=== PATIENT | male | born 1970 | race Caucasian/White ===

== ENCOUNTER 2018-07-23 12:25 | Inpatient (IN) ==
[2018-07-23] MEDS ORDERED: HEPARIN DRIP 25,000 UNITS/500 ML PREMIX IV SCH (13:00)
[2018-07-23] MEDS ORDERED: CHLORHEXIDINE 4% SOLN 118 ML BOTTLE TOP SCH (15:00)
[2018-07-23 15:18] LABS: Basophils % 0.2 % (0.0-0.8); Hematocrit 42.9 VOL% (42.0-52.0); Hemoglobin 14.2 GM/DL (14.0-18.0); Immature Granulocytes % 0.9 %; Immature Granulocytes Absolute 0.16 #; Lymphocytes # 1.3 10*3/uL (1.4-4.0); Lymphocytes % 6.8 % (21.2-54.2); Mean Corpuscular HGB Conc 33.1 GM/DL (32-36); Mean Corpuscular Volume 97.5 FL (87-102); Mean Platelet Volume 9.3 FL (9.6-12.0); Monocytes % 10.1 % (1.7-12.7); Platelet Count 227 T/CUMM (130-400); Red Cell Distribution Width 16.1 % (9.3-17.3); White Blood Count 18.7 T/CUMM (4-12)
[2018-07-23] MEDS ORDERED: DEXTROSE 50% 25 GM/50 ML VIAL IV PRN (15:33)
[2018-07-23] MEDS ORDERED: GLUCAGON 1 MG VIAL IM PRN (15:33)
[2018-07-23 15:44] LABS: Bilirubin,Total 0.9 MG/DL (0.2-1.0); Calcium 9.2 MG/DL (8.5-10.1); Osmolality,Calculated 270.2 MOS/KG (273-304); Total Protein 7.6 G/DL (6.4-8.3)
[2018-07-23] MEDS: HEPARIN DRIP 25,000 UNITS/500 ML PREMIX IV SCH (16:45)
[2018-07-23] MEDS: INSULIN REGULAR 100 UNIT/ML SUBCUT SCH ×2 (16:56→21:15)
[2018-07-23 17:58] LABS: Apearance,Urine CLEAR (Clear); Bilirubin,Urine Negative (Negative); Blood, Urine Moderate mg/dL (Negative); Glucose,Urine (UA) Negative (Negative); Ketones,Urine Negative (Negative); Nitrite,Urine Negative (Negative); Protein,Urine Negative; RBC,Urine 35 /HPF (0-4); Squamous Epithelial Cell,Urine Occasional /HPF (0-10); Urine Color Yellow (Yellow); Urine Specific Gravity 1.017 (1.001-1.035); Urine Urobilinogen < 2.0 EU/DL (0.2-1.0); WBC,Urine 7 /HPF (0-6)
[2018-07-23] MEDS ORDERED: NICOTINE 14 MG/24 HR PATCH TRANSDERM PRN (18:30)
[2018-07-23] MEDS: SODIUM CHLORIDE 0.9% 1,000 ML IV SCH (18:34)
[2018-07-23] MEDS: methylPREDNISolone SOD SUC 40 MG/1 ML VIAL IV SCH (18:53)
[2018-07-23] MEDS: METOPROLOL TARTRATE 25 MG TABLET PO SCH (21:14)
[2018-07-23] MEDS: CHLORHEXIDINE 0.12% ORAL RINSE 60 ML BOTTLE SWISH/SPIT SCH (21:15)
[2018-07-23] MEDS ORDERED: HEPARIN 5,000 UNIT/1 ML VIAL IV ONE (23:21)
[2018-07-24] MEDS: methylPREDNISolone SOD SUC 40 MG/1 ML VIAL IV SCH ×3 (02:35→18:14)
[2018-07-24 05:58] LABS: Basophils % 0.2 % (0.0-0.8); Hematocrit 41.3 VOL% (42.0-52.0); Hemoglobin 13.5 GM/DL (14.0-18.0); Immature Granulocytes % 0.7 %; Immature Granulocytes Absolute 0.09 #; Lymphocytes # 0.8 10*3/uL (1.4-4.0); Lymphocytes % 6.4 % (21.2-54.2); Mean Corpuscular HGB Conc 32.7 GM/DL (32-36); Mean Corpuscular Volume 97.6 FL (87-102); Mean Platelet Volume 9.7 FL (9.6-12.0); Monocytes % 5.4 % (1.7-12.7); Neutrophils % 87.3 % (38.7-73.9); Platelet Count 197 T/CUMM (130-400); Red Blood Count 4.23 MC/CUMM (3.8-5.5); Red Cell Distribution Width 16.3 % (9.3-17.3); White Blood Count 12.5 T/CUMM (4-12)
[2018-07-24 06:29] LABS: Albumin 2.9 G/DL (3.4-5.0); Bilirubin,Total 1.2 MG/DL (0.2-1.0); Calcium 8.9 MG/DL (8.5-10.1); Osmolality,Calculated 271.4 MOS/KG (273-304); Total Protein 7.3 G/DL (6.4-8.3)
[2018-07-24] MEDS ORDERED: HEPARIN 5,000 UNIT/1 ML VIAL IV ONE ×3 (06:35→17:23)
[2018-07-24] MEDS: METOPROLOL TARTRATE 25 MG TABLET PO SCH ×2 (08:12→20:10)
[2018-07-24] MEDS: LEVOFLOXACIN 750 MG TABLET PO SCH (08:12)
[2018-07-24] MEDS: ASPIRIN CHEW 81 MG TABLET PO SCH (08:12)
[2018-07-24] MEDS: FUROSEMIDE 40 MG/4 ML VIAL IV SCH (08:17)
[2018-07-24] MEDS: CHLORHEXIDINE 0.12% ORAL RINSE 60 ML BOTTLE SWISH/SPIT SCH ×2 (08:17→20:12)
[2018-07-24] MEDS: INSULIN REGULAR 100 UNIT/ML SUBCUT SCH ×4 (08:21→20:13)
[2018-07-24] MEDS: HEPARIN DRIP 25,000 UNITS/500 ML PREMIX IV SCH ×2 (08:54→18:22)
[2018-07-24] MEDS: chlordiazePOXIDE 10 MG CAPSULE PO SCH ×2 (11:51→20:10)
[2018-07-24] MEDS: SODIUM CHLORIDE 0.9% 1,000 ML IV SCH (13:35)
[2018-07-24] MEDS: CHLORHEXIDINE 4% SOLN 118 ML BOTTLE TOP SCH ×2 (15:52→22:45)
[2018-07-25] MEDS: methylPREDNISolone SOD SUC 40 MG/1 ML VIAL IV SCH ×2 (03:22→11:23)
[2018-07-25] MEDS: chlordiazePOXIDE 10 MG CAPSULE PO SCH ×2 (03:28→15:34)
[2018-07-25] MEDS ORDERED: PAPAVERINE 60 MG/2 ML VIAL ONE (04:57)
[2018-07-25] MEDS ORDERED: VANCOMYCIN 1,000 MG VIAL ONE (04:57)
[2018-07-25] MEDS: CHLORHEXIDINE 4% SOLN 118 ML BOTTLE TOP SCH (05:00)
[2018-07-25] MEDS ORDERED: HEPARIN/NACL 0.9% 2 UNITS/ML 500 ML IV ONE (05:36)
[2018-07-25] MEDS ORDERED: CALCIUM CHLORIDE 1,000 MG/10 ML VIAL IV ONE (05:36)
[2018-07-25] MEDS ORDERED: EPINEPHrine 1 MG/ML VIAL ONE (05:36)
[2018-07-25] MEDS ORDERED: PHENYLEPHRINE DRIP 20 MG/250 ML PREMIX IV ONE (05:36)
[2018-07-25] MEDS ORDERED: MIDAZOLAM 10 MG/2 ML VIAL ONE ×2 (05:36→12:32)
[2018-07-25] MEDS ORDERED: SUFentanil 250 MCG/5 ML AMP ONE (05:36)
[2018-07-25] MEDS ORDERED: ETOMIDATE 40 MG/20 ML VIAL IV ONE (05:37)
[2018-07-25] MEDS ORDERED: SODIUM CHLORIDE 0.9% 250 ML IV ONE (05:37)
[2018-07-25] MEDS ORDERED: NITROGLYCERIN DRIP 50 MG/250 ML BOTTLE IV ONE ×2 (05:37→12:22)
[2018-07-25] MEDS ORDERED: VECURONIUM 10 MG VIAL IV ONE (05:37)
[2018-07-25] MEDS ORDERED: SODIUM CHLORIDE 0.9% 1,000 ML IV ONE (05:37)
[2018-07-25] MEDS ORDERED: AMINOCAPROIC ACID 5,000 MG/20 ML VIAL ONE (05:37)
[2018-07-25] MEDS ORDERED: ePHEDrine 50 MG/ML AMP ONE (05:37)
[2018-07-25] MEDS ORDERED: LACTATED RINGERS 1,000 ML IV ONE (05:37)
[2018-07-25] MEDS ORDERED: CEFUROXIME INJ 1,500 MG in SYRINGE 1 EACH IV ONE (06:00)
[2018-07-25] MEDS ORDERED: DIAZEPAM 5 MG TABLET PO ONE (06:00)
[2018-07-25] MEDS ORDERED: PHENYLEPHRINE DRIP 40 MG/250 ML PREMIX IV ONE (07:01)
[2018-07-25] MEDS ORDERED: CALCIUM CHLORIDE 1,000 MG/10 ML SYRINGE IV ONE (07:11)
[2018-07-25] MEDS ORDERED: SODIUM BICARBONATE 50 MEQ/50 ML VIAL IV ONE ×2 (07:12→11:59)
[2018-07-25 08:05] LABS: ABG Base Excess 0.4 MMOL/L (-2.5-2.5); ABG HCO3 24.5 MMOL/L (20-26); ABG Oxygen Saturation 99.3 % (95-100); ABG PCO2 37.8 MM HG (35-48); ABG PH 7.429 (7.35-7.45); ABG PO2 267.9 MM HG (80-95); ABG TCO2 25.6 MMOL/L (23-27); Glucose Heart Surgery 185 MG/DL (74-106); Ionized Calcium Arterial 1.11 MMOL/L (1.21-1.46); PCO2 Patient Temp Arterial 37.8 MMHG; PH Patient Temp Arterial 7.429; PO2 Patient Temp Arterial 267.9 MM HG; Patient Temperature 37 CELCIUS; Potassium Heart/CVR 3.7 MMOL/L (3.5-5.1); Sodium Heart/CVR 133 MMOL/L (135-145)
[2018-07-25] MEDS ORDERED: ALBUMIN 5% 12.5 GM/250 ML VIAL IV ONE (08:39)
[2018-07-25] MEDS ORDERED: CHLORHEXIDINE 4% SOLN 118 ML BOTTLE TOP SCH (09:00)
[2018-07-25 09:58] LABS: Hematocrit Heart Surgery 29.7 PERCENT (42-52); Hemoglobin Heart Surgery 9.6 G/DL (14.0-18.0); PCO2 Patient Temp Venous 36.6 MM HG; PH Patient Temp Venous 7.458; Potassium Heart/CVR 4.5 MMOL/L (3.5-5.1); VBG Base Excess 2.2 MEQ/L (0-4); VBG HCO3 26.1 MEQ/L (24-28); VBG Oxygen Saturation 81.5 %; VBG PCO2 40.3 MMHG (41-51); VBG PH 7.429; VBG PO2 48.2 MMHG (17-40)
[2018-07-25 10:26] LABS: Hematocrit Heart Surgery 29.1 PERCENT (42-52); Hemoglobin Heart Surgery 9.4 G/DL (14.0-18.0); PCO2 Patient Temp Venous 39.6 MM HG; PH Patient Temp Venous 7.421; PO2 Patient Temp Venous 36.6 MM HG; Potassium Heart/CVR 4.4 MMOL/L (3.5-5.1); VBG Base Excess 1.3 MEQ/L (0-4); VBG HCO3 25.1 MEQ/L (24-28); VBG PCO2 39.6 MMHG (41-51); VBG PH 7.421; VBG PO2 36.6 MMHG (17-40)
[2018-07-25] MEDS ORDERED: POTASSIUM CHLORIDE RIDER 100 ML IV ONE (10:43)
[2018-07-25 11:05] LABS: ABG Base Excess -1.8 MMOL/L (-2.5-2.5); ABG HCO3 23.9 MMOL/L (20-26); ABG Oxygen Saturation 97.4 % (95-100); ABG PCO2 44.5 MM HG (35-48); ABG PH 7.348 (7.35-7.45); ABG PO2 113.6 MM HG (80-95); ABG TCO2 25.3 MMOL/L (23-27); Glucose Heart Surgery 327 MG/DL (74-106); Hemoglobin Heart Surgery 11.6 G/DL (14.0-18.0); PCO2 Patient Temp Arterial 44.5 MMHG; PH Patient Temp Arterial 7.348; PO2 Patient Temp Arterial 113.6 MM HG; Patient Temperature 37 CELCIUS; Potassium Heart/CVR 3.1 MMOL/L (3.5-5.1); Sodium Heart/CVR 130 MMOL/L (135-145)
[2018-07-25] MEDS: INSULIN REGULAR 100 UNIT/ML SUBCUT SCH ×2 (11:22→15:34)
[2018-07-25] MEDS: ASPIRIN CHEW 81 MG TABLET PO SCH (11:23)
[2018-07-25] MEDS: METOPROLOL TARTRATE 25 MG TABLET PO SCH (11:23)
[2018-07-25] MEDS: LEVOFLOXACIN 750 MG TABLET PO SCH (11:23)
[2018-07-25] MEDS: CHLORHEXIDINE 0.12% ORAL RINSE 60 ML BOTTLE SWISH/SPIT SCH ×2 (11:23→21:03)
[2018-07-25] MEDS: FUROSEMIDE 40 MG/4 ML VIAL IV SCH (11:23)
[2018-07-25] MEDS ORDERED: AMIODARONE 450 MG/9 ML VIAL IV ONE (11:26)
[2018-07-25] MEDS ORDERED: DEXTROSE 50% 25 GM/50 ML VIAL IV PRN ×2 (11:53)
[2018-07-25] MEDS ORDERED: ALBUMIN 5% 12.5 GM in PREMIX 1 EACH IV PRN (11:53)
[2018-07-25] MEDS ORDERED: INSULIN REGULAR 100 UNIT/ML IV PRN (11:53)
[2018-07-25] MEDS ORDERED: SODIUM CHLORIDE 0.9% 250 ML IV PRN (11:53)
[2018-07-25] MEDS ORDERED: CALCIUM CHLORIDE 1,000 MG/10 ML SYRINGE IV PRN (11:53)
[2018-07-25] MEDS ORDERED: MAGNESIUM SULF RIDER 4 GM in PREMIX 1 EACH IV PRN (11:53)
[2018-07-25] MEDS ORDERED: ACETAMINOPHEN 650 MG SUPP RECTAL PRN (11:53)
[2018-07-25] MEDS ORDERED: ONDANSETRON 4 MG/2 ML VIAL IV PRN (11:53)
[2018-07-25] MEDS ORDERED: CHLORHEXIDINE 4% SOLN 118 ML BOTTLE TOP PRN (11:53)
[2018-07-25] MEDS ORDERED: MAGNESIUM SULF RIDER 2 GM in PREMIX 1 EACH IV PRN (11:53)
[2018-07-25] MEDS ORDERED: POTASSIUM CHLORIDE RIDER 10 MEQ in PREMIX 1 EACH IV PRN (11:53)
[2018-07-25] MEDS ORDERED: MAGNESIUM SULFATE 5 GM/10 ML VIAL IV ONE (11:59)
[2018-07-25] MEDS ORDERED: PROTAMINE SULFATE 250 MG/25 ML VIAL IV ONE (11:59)
[2018-07-25] MEDS ORDERED: HEPARIN 10,000 UNIT/10 ML VIAL ONE (11:59)
[2018-07-25] MEDS ORDERED: MANNITOL 100 GM/500 ML BAG IV ONE (11:59)
[2018-07-25] MEDS ORDERED: ALBUMIN 25% 25 GM/100 ML VIAL IV ONE (11:59)
[2018-07-25] MEDS ORDERED: DEXTROSE 5% KCL 20 MEQ 20 MEQ/1,000 ML BAG IV ONE (11:59)
[2018-07-25] MEDS: SODIUM CHLORIDE 0.45% 1,000 ML IV SCH ×2 (12:00)
[2018-07-25] MEDS ORDERED: methylPREDNISolone SOD SUC 1,000 MG/8 ML VIAL ONE (12:00)
[2018-07-25] MEDS ORDERED: PROTAMINE SULFATE 50 MG/5 ML VIAL IV ONE (12:00)
[2018-07-25] MEDS ORDERED: FUROSEMIDE 20 MG/2 ML VIAL ONE (12:00)
[2018-07-25] MEDS ORDERED: SEVOFLURANE 1 UNIT/15 MINUTE INH ONE (12:04)
[2018-07-25] MEDS ORDERED: AMIODARONE 150 MG/3 ML VIAL ONE (12:04)
[2018-07-25] MEDS ORDERED: hydrALAZINE 20 MG/1 ML VIAL ONE (12:24)
[2018-07-25] MEDS ORDERED: NITROPRUSSIDE 50 MG/2 ML VIAL ONE (12:31)
[2018-07-25] MEDS: MIDAZOLAM 2 MG/2 ML VIAL IV PRN ×5 (12:45→20:13)
[2018-07-25] MEDS: POTASSIUM CHLORIDE RIDER 20 MEQ in PREMIX 1 EACH IV PRN ×4 (13:00→17:35)
[2018-07-25 13:06] LABS: ABG Base Excess -2.5 MMOL/L (-2.5-2.5); ABG HCO3 22.3 MMOL/L (20-26); ABG Oxygen Saturation 97.9 % (95-100); ABG PH 7.294 (7.35-7.45); Glucose Heart Surgery 308 MG/DL (74-106); Hematocrit Heart Surgery 39.7 PERCENT (42-52); Hemoglobin Heart Surgery 12.9 G/DL (14.0-18.0); Potassium Heart/CVR 3.2 MMOL/L (3.5-5.1)
[2018-07-25 13:11] LABS: Basophils % 0.2 % (0.0-0.8); Eosinophils % 0.1 % (0.00-10.9); Hematocrit 38.5 VOL% (42.0-52.0); Hemoglobin 12.3 GM/DL (14.0-18.0); Immature Granulocytes Absolute 0.19 #; Lymphocytes # 0.8 10*3/uL (1.4-4.0); Lymphocytes % 4.3 % (21.2-54.2); Mean Corpuscular HGB Conc 31.9 GM/DL (32-36); Mean Corpuscular Volume 100.5 FL (87-102); Mean Platelet Volume 9.8 FL (9.6-12.0); Monocytes % 10.3 % (1.7-12.7); Neutrophils % 84.1 % (38.7-73.9); Platelet Count 200 T/CUMM (130-400); Red Blood Count 3.83 MC/CUMM (3.8-5.5); White Blood Count 18.9 T/CUMM (4-12)
[2018-07-25 13:19] LABS: PT Patient Result 11.3 SECS; Partial Thromboplastin Time 23.5 SECS (0-40)
[2018-07-25 13:25] LABS: Blood Urea Nitrogen 18 MG/DL (7-18); Calcium 8.1 MG/DL (8.5-10.1); Glucose 280 MG/DL (74-106); Osmolality,Calculated 284.8 MOS/KG (273-304)
[2018-07-25] MEDS ORDERED: NITROGLYCERIN DRIP 50 MG/250 ML BOTTLE IV PRN (13:34)
[2018-07-25] MEDS ORDERED: NITROPRUSSIDE 100 MG in DEXTROSE 5% 246 ML IV PRN (13:34)
[2018-07-25 13:50] LABS: Band Neutrophils 2 % (0-10); Segmented Neutrophils 86 % (50-85); Total Cells Counted 100
[2018-07-25 13:51] LABS: Lymphocytes 5 % (20-55)
[2018-07-25] MEDS: INSULIN REGULAR DRIP 100 ML IV SCH (14:00)
[2018-07-25] MEDS ORDERED: AMIODARONE INJ 450 MG in DEXTROSE 5% 241 ML IV SCH (14:00)
[2018-07-25] MEDS ORDERED: ASPIRIN 325 MG TABLET PO ONE (14:38)
[2018-07-25] MEDS: DEXMEDETOMIDINE 200 MCG in SODIUM CHLORIDE 0.9% 48 ML IV PRN ×4 (14:56→21:59)
[2018-07-25] MEDS: SODIUM CHLORIDE 0.9% 1,000 ML IV SCH (15:35)
[2018-07-25] MEDS: LEVALBUTEROL 1.25 MG/3 ML NEB RESP TX SCH ×2 (15:47→19:07)
[2018-07-25 16:30] LABS: ABG Base Excess -1.7 MMOL/L (-2.5-2.5); ABG PCO2 44.3 MM HG (35-48); ABG PH 7.345 (7.35-7.45); ABG TCO2 21.7 MMOL/L (23-27); Glucose Heart Surgery 269 MG/DL (74-106); Hematocrit Heart Surgery 35.6 PERCENT (42-52); Hemoglobin Heart Surgery 11.5 G/DL (14.0-18.0); Potassium Heart/CVR 3.4 MMOL/L (3.5-5.1)
[2018-07-25] MEDS: PROPOFOL 1,000 MG/100 ML BOTTLE IV SCH ×2 (17:30→21:58)
[2018-07-25] MEDS ORDERED: PROPOFOL 1,000 MG/100 ML BOTTLE IV ONE (17:37)
[2018-07-25] MEDS: AMIODARONE INJ 450 MG in DEXTROSE 5% 241 ML IV SCH ×2 (18:58→19:33)
[2018-07-25] MEDS: MORPHINE 10 MG/1 ML VIAL IV PRN (20:00)
[2018-07-25] MEDS: CEFUROXIME INJ 1,500 MG in SYRINGE 1 EACH IV SCH (21:16)
[2018-07-25] MEDS ORDERED: PHENYLEPHRINE DRIP 40 MG/250 ML PREMIX IV PRN (21:29)
[2018-07-25 21:41] LABS: ABG Base Excess 1.8 MMOL/L (-2.5-2.5); ABG Oxygen Saturation 98.5 % (95-100); ABG PCO2 42.7 MM HG (35-48); ABG PH 7.404 (7.35-7.45); ABG TCO2 24.1 MMOL/L (23-27); Glucose Heart Surgery 133 MG/DL (74-106); Hematocrit Heart Surgery 32.8 PERCENT (42-52); Hemoglobin Heart Surgery 10.6 G/DL (14.0-18.0); Potassium Heart/CVR 4.4 MMOL/L (3.5-5.1)
[2018-07-26] MEDS: LEVALBUTEROL 1.25 MG/3 ML NEB RESP TX SCH ×4 (00:39→18:35)
[2018-07-26] MEDS: DEXMEDETOMIDINE 200 MCG in SODIUM CHLORIDE 0.9% 48 ML IV PRN ×5 (00:48→11:04)
[2018-07-26] MEDS: PROPOFOL 1,000 MG/100 ML BOTTLE IV SCH ×6 (01:18→19:19)
[2018-07-26] MEDS: SODIUM CHLORIDE 0.45% 1,000 ML IV SCH ×3 (02:36→15:52)
[2018-07-26] MEDS: INSULIN REGULAR DRIP 100 ML IV SCH ×2 (03:48→18:10)
[2018-07-26 04:16] LABS: Basophils % 0.2 % (0.0-0.8); Hematocrit 32.6 VOL% (42.0-52.0); Hemoglobin 10.2 GM/DL (14.0-18.0); Immature Granulocytes % 0.5 %; Immature Granulocytes Absolute 0.06 #; Lymphocytes % 8.3 % (21.2-54.2); Mean Corpuscular HGB Conc 31.3 GM/DL (32-36); Mean Corpuscular Volume 101.6 FL (87-102); Mean Platelet Volume 10.1 FL (9.6-12.0); Monocytes % 10.5 % (1.7-12.7); Neutrophils % 80.5 % (38.7-73.9); Platelet Count 135 T/CUMM (130-400); Red Blood Count 3.21 MC/CUMM (3.8-5.5); Red Cell Distribution Width 16.3 % (9.3-17.3)
[2018-07-26 04:38] LABS: Calcium 7.9 MG/DL (8.5-10.1); Osmolality,Calculated 279.4 MOS/KG (273-304)
[2018-07-26] MEDS ORDERED: DOBUTamine 500 MG/250 ML PREMIX IV PRN (04:58)
[2018-07-26] MEDS ORDERED: CEFUROXIME INJ 1,500 MG in SYRINGE 1 EACH IV ONE (06:00)
[2018-07-26] MEDS: MORPHINE 10 MG/1 ML VIAL IV PRN ×4 (06:31→15:26)
[2018-07-26] MEDS: MIDAZOLAM 2 MG/2 ML VIAL IV PRN (06:34)
[2018-07-26 08:05] LABS: ABG Base Excess -0.2 MMOL/L (-2.5-2.5); ABG PCO2 32.9 MM HG (35-48); ABG PH 7.462 (7.35-7.45); ABG PO2 113.2 MM HG (80-95); Glucose Heart Surgery 135 MG/DL (74-106); Hemoglobin Heart Surgery 12.2 G/DL (14.0-18.0); Potassium Heart/CVR 4.1 MMOL/L (3.5-5.1)
[2018-07-26] MEDS ORDERED: DIAZEPAM 5 MG TABLET PO ONE (09:00)
[2018-07-26] MEDS: FAMOTIDINE 20 MG/2 ML VIAL IV SCH ×2 (09:19→20:13)
[2018-07-26] MEDS: CEFUROXIME INJ 1,500 MG in SYRINGE 1 EACH IV SCH ×2 (09:19→21:12)
[2018-07-26] MEDS ORDERED: AMIODARONE 450 MG/9 ML VIAL IV ONE (10:16)
[2018-07-26] MEDS ORDERED: FUROSEMIDE 40 MG/4 ML VIAL ONE (10:16)
[2018-07-26] MEDS: ASPIRIN 325 MG TABLET PO SCH (11:02)
[2018-07-26] MEDS: FUROSEMIDE 40 MG TABLET PO SCH (11:02)
[2018-07-26] MEDS: ATORVASTATIN 40 MG TABLET PO SCH ×2 (11:02→20:14)
[2018-07-26] MEDS ORDERED: FUROSEMIDE 40 MG/4 ML VIAL IV ONE (11:18)
[2018-07-26] MEDS: CHLORHEXIDINE 0.12% ORAL RINSE 60 ML BOTTLE SWISH/SPIT SCH ×2 (11:28→20:43)
[2018-07-26] MEDS ORDERED: ASPIRIN EC 325 MG TABLET PO SCH (11:53)
[2018-07-26] MEDS: AMIODARONE INJ 450 MG in DEXTROSE 5% 241 ML IV SCH (12:10)
[2018-07-26] MEDS: DEXMEDETOMIDINE 400 MCG in SODIUM CHLORIDE 0.9% 96 ML IV PRN ×2 (13:27→18:51)
[2018-07-26] MEDS: PANTOPRAZOLE INJ 200 MG in SODIUM CHLORIDE 0.9% 250 ML IV SCH (14:17)
[2018-07-26] MEDS ORDERED: PANTOPRAZOLE 40 MG VIAL IV SCH ×2 (15:00)
[2018-07-26] MEDS: chlordiazePOXIDE 10 MG CAPSULE PO SCH (18:15)
[2018-07-26] MEDS: methylPREDNISolone SOD SUC 40 MG/1 ML VIAL IV SCH (18:49)
[2018-07-26 19:05] LABS: ABG Base Excess 0.6 MMOL/L (-2.5-2.5); ABG HCO3 24.2 MMOL/L (20-26); ABG Oxygen Saturation 87.7 % (95-100); ABG PCO2 35.5 MM HG (35-48); ABG PH 7.452 (7.35-7.45); ABG TCO2 25.3 MMOL/L (23-27); Glucose Heart Surgery 126 MG/DL (74-106); Hemoglobin Heart Surgery 11.9 G/DL (14.0-18.0)
[2018-07-26 20:06] LABS: ABG Base Excess 0.1 MMOL/L (-2.5-2.5); ABG HCO3 23.7 MMOL/L (20-26); ABG Oxygen Saturation 92.4 % (95-100); ABG PH 7.449 (7.35-7.45); ABG PO2 67.6 MM HG (80-95); ABG TCO2 24.8 MMOL/L (23-27); Glucose Heart Surgery 129 MG/DL (74-106); Hemoglobin Heart Surgery 11.8 G/DL (14.0-18.0); Potassium Heart/CVR 4.5 MMOL/L (3.5-5.1)
[2018-07-26] MEDS ORDERED: ALBUTEROL/IPRATROPIUM 3 ML NEB RESP TX ONE (20:39)
[2018-07-26] MEDS ORDERED: KETOROLAC 30 MG/1 ML VIAL IV ONE (20:51)
[2018-07-26 21:26] LABS: ABG Base Excess 0.3 MMOL/L (-2.5-2.5); ABG HCO3 24.7 MMOL/L (20-26); ABG Oxygen Saturation 97.7 % (95-100); ABG PCO2 37.4 MM HG (35-48); ABG PH 7.423 (7.35-7.45); ABG TCO2 21.8 MMOL/L (23-27); Glucose Heart Surgery 140 MG/DL (74-106); Hematocrit Heart Surgery 35.1 PERCENT (42-52); Hemoglobin Heart Surgery 11.4 G/DL (14.0-18.0)
[2018-07-27] MEDS: ALBUTEROL/IPRATROPIUM 3 ML NEB RESP TX SCH ×4 (00:15→20:23)
[2018-07-27] MEDS: LEVALBUTEROL 1.25 MG/3 ML NEB RESP TX SCH ×6 (00:15→14:25)
[2018-07-27] MEDS: methylPREDNISolone SOD SUC 40 MG/1 ML VIAL IV SCH ×3 (03:37→17:10)
[2018-07-27] MEDS: chlordiazePOXIDE 10 MG CAPSULE PO SCH ×3 (03:37→17:10)
[2018-07-27 05:27] LABS: Basophils % 0.2 % (0.0-0.8); Hematocrit 34.7 VOL% (42.0-52.0); Hemoglobin 11.2 GM/DL (14.0-18.0); Immature Granulocytes % 0.9 %; Immature Granulocytes Absolute 0.16 #; Lymphocytes # 0.7 10*3/uL (1.4-4.0); Mean Corpuscular HGB Conc 32.3 GM/DL (32-36); Mean Corpuscular Volume 99.7 FL (87-102); Mean Platelet Volume 10.4 FL (9.6-12.0); Monocytes % 6.3 % (1.7-12.7); Neutrophils % 88.6 % (38.7-73.9); Platelet Count 197 T/CUMM (130-400); Red Blood Count 3.48 MC/CUMM (3.8-5.5); Red Cell Distribution Width 16.2 % (9.3-17.3); White Blood Count 17.2 T/CUMM (4-12)
[2018-07-27 05:41] LABS: Calcium 8.4 MG/DL (8.5-10.1); Osmolality,Calculated 281.8 MOS/KG (273-304)
[2018-07-27] MEDS: AMIODARONE INJ 450 MG in DEXTROSE 5% 241 ML IV SCH ×2 (05:45→19:31)
[2018-07-27 06:34] LABS: Band Neutrophils 1 % (0-10); Hypochromasia 1+; Lymphocytes 5 % (20-55); Platelet Estimate Adequate; Segmented Neutrophils 92 % (50-85); Total Cells Counted 100
[2018-07-27] MEDS ORDERED: METOPROLOL TARTRATE 5 MG/5 ML VIAL IV ONE ×2 (10:53→22:53)
[2018-07-27] MEDS ORDERED: FUROSEMIDE 40 MG/4 ML VIAL IV ONE (10:53)
[2018-07-27] MEDS: CARVEDILOL 3.125 MG TABLET PO SCH ×2 (11:48→17:10)
[2018-07-27] MEDS: AMIODARONE 200 MG TABLET PO SCH ×2 (11:48→22:03)
[2018-07-27] MEDS: ASPIRIN 325 MG TABLET PO SCH (11:48)
[2018-07-27] MEDS: INSULIN REGULAR 100 UNIT/ML SUBCUT SCH ×4 (11:50→22:03)
[2018-07-27] MEDS: FUROSEMIDE 40 MG TABLET PO SCH (11:51)
[2018-07-27] MEDS: FAMOTIDINE 20 MG/2 ML VIAL IV SCH (11:52)
[2018-07-27] MEDS: CHLORHEXIDINE 0.12% ORAL RINSE 60 ML BOTTLE SWISH/SPIT SCH ×2 (11:56→22:04)
[2018-07-27] MEDS: MORPHINE 10 MG/1 ML VIAL IV PRN ×2 (12:02→22:02)
[2018-07-27] MEDS: PANTOPRAZOLE INJ 200 MG in SODIUM CHLORIDE 0.9% 250 ML IV SCH (15:50)
[2018-07-27] MEDS: NICOTINE 21 MG/24 HR PATCH TRANSDERM SCH (17:00)
[2018-07-27] MEDS: PROPOFOL 1,000 MG/100 ML BOTTLE IV SCH (19:32)
[2018-07-27] MEDS: ATORVASTATIN 40 MG TABLET PO SCH (22:03)
[2018-07-28] MEDS: ALBUTEROL/IPRATROPIUM 3 ML NEB RESP TX SCH ×4 (00:31→19:40)
[2018-07-28] MEDS: chlordiazePOXIDE 10 MG CAPSULE PO SCH ×3 (01:26→17:34)
[2018-07-28] MEDS: methylPREDNISolone SOD SUC 40 MG/1 ML VIAL IV SCH ×3 (01:33→17:34)
[2018-07-28 05:23] LABS: Basophils % 0.2 % (0.0-0.8); Hematocrit 33.6 VOL% (42.0-52.0); Hemoglobin 10.8 GM/DL (14.0-18.0); Immature Granulocytes % 1.3 %; Immature Granulocytes Absolute 0.16 #; Lymphocytes # 0.9 10*3/uL (1.4-4.0); Lymphocytes % 6.8 % (21.2-54.2); Mean Corpuscular HGB Conc 32.1 GM/DL (32-36); Mean Corpuscular Volume 101.2 FL (87-102); Mean Platelet Volume 10.7 FL (9.6-12.0); Monocytes % 7.5 % (1.7-12.7); Neutrophils % 84.2 % (38.7-73.9); Platelet Count 162 T/CUMM (130-400); Red Blood Count 3.32 MC/CUMM (3.8-5.5); Red Cell Distribution Width 16.1 % (9.3-17.3); White Blood Count 12.5 T/CUMM (4-12)
[2018-07-28 05:52] LABS: Calcium 8.9 MG/DL (8.5-10.1); Osmolality,Calculated 290.4 MOS/KG (273-304)
[2018-07-28] MEDS: POTASSIUM CHLORIDE RIDER 20 MEQ in PREMIX 1 EACH IV PRN (06:52)
[2018-07-28] MEDS ORDERED: FUROSEMIDE 40 MG/4 ML VIAL IV ONE (08:13)
[2018-07-28] MEDS: CHLORHEXIDINE 0.12% ORAL RINSE 60 ML BOTTLE SWISH/SPIT SCH ×2 (09:12→21:25)
[2018-07-28] MEDS: INSULIN REGULAR 100 UNIT/ML SUBCUT SCH ×4 (09:24→21:23)
[2018-07-28] MEDS: FUROSEMIDE 40 MG TABLET PO SCH (09:25)
[2018-07-28] MEDS: AMIODARONE 200 MG TABLET PO SCH ×2 (09:25→21:23)
[2018-07-28] MEDS: NICOTINE 21 MG/24 HR PATCH TRANSDERM SCH (09:25)
[2018-07-28] MEDS: ASPIRIN 325 MG TABLET PO SCH (09:25)
[2018-07-28] MEDS: CARVEDILOL 3.125 MG TABLET PO SCH (09:25)
[2018-07-28] MEDS ORDERED: CARVEDILOL 3.125 MG TABLET PO ONE (10:19)
[2018-07-28] MEDS: MORPHINE 10 MG/1 ML VIAL IV PRN (16:24)
[2018-07-28] MEDS: ATORVASTATIN 40 MG TABLET PO SCH (21:23)
[2018-07-28] MEDS: CARVEDILOL 6.25 MG TABLET PO SCH (21:23)
[2018-07-29] MEDS: ALBUTEROL/IPRATROPIUM 3 ML NEB RESP TX SCH ×4 (01:35→19:07)
[2018-07-29] MEDS: methylPREDNISolone SOD SUC 40 MG/1 ML VIAL IV SCH ×3 (02:39→17:41)
[2018-07-29] MEDS: chlordiazePOXIDE 10 MG CAPSULE PO SCH ×3 (02:39→17:41)
[2018-07-29] MEDS: MORPHINE 10 MG/1 ML VIAL IV PRN ×2 (04:08→15:14)
[2018-07-29] MEDS: ASPIRIN 325 MG TABLET PO SCH (09:44)
[2018-07-29] MEDS: AMIODARONE 200 MG TABLET PO SCH ×2 (09:44→20:43)
[2018-07-29] MEDS: INSULIN REGULAR 100 UNIT/ML SUBCUT SCH ×4 (09:44→20:42)
[2018-07-29] MEDS: CARVEDILOL 6.25 MG TABLET PO SCH ×2 (09:45→20:43)
[2018-07-29] MEDS: NICOTINE 21 MG/24 HR PATCH TRANSDERM SCH (09:45)
[2018-07-29] MEDS: FUROSEMIDE 40 MG TABLET PO SCH (09:45)
[2018-07-29] MEDS: CHLORHEXIDINE 0.12% ORAL RINSE 60 ML BOTTLE SWISH/SPIT SCH ×2 (09:51→20:43)
[2018-07-29] MEDS: MORPHINE 4 MG/1 ML VIAL IV PRN (09:55)
[2018-07-29] MEDS ORDERED: FUROSEMIDE 40 MG/4 ML VIAL IV ONE (14:27)
[2018-07-29] MEDS: ATORVASTATIN 40 MG TABLET PO SCH (20:43)
[2018-07-30] MEDS: ALBUTEROL/IPRATROPIUM 3 ML NEB RESP TX SCH ×2 (00:44→07:23)
[2018-07-30] MEDS: MORPHINE 10 MG/1 ML VIAL IV PRN (01:37)
[2018-07-30] MEDS: chlordiazePOXIDE 10 MG CAPSULE PO SCH ×3 (01:37→17:07)
[2018-07-30] MEDS: methylPREDNISolone SOD SUC 40 MG/1 ML VIAL IV SCH ×3 (01:47→23:10)
[2018-07-30 06:24] LABS: Basophils % 0.2 % (0.0-0.8); Hematocrit 35.4 VOL% (42.0-52.0); Hemoglobin 11.8 GM/DL (14.0-18.0); Immature Granulocytes % 2.1 %; Immature Granulocytes Absolute 0.33 #; Lymphocytes # 1.2 10*3/uL (1.4-4.0); Lymphocytes % 7.7 % (21.2-54.2); Mean Corpuscular HGB Conc 33.3 GM/DL (32-36); Mean Corpuscular Volume 96.2 FL (87-102); Mean Platelet Volume 9.7 FL (9.6-12.0); Monocytes % 6.4 % (1.7-12.7); Neutrophils % 83.6 % (38.7-73.9); Platelet Count 301 T/CUMM (130-400); Red Blood Count 3.68 MC/CUMM (3.8-5.5); Red Cell Distribution Width 14.8 % (9.3-17.3); White Blood Count 15.9 T/CUMM (4-12)
[2018-07-30 06:44] LABS: Calcium 8.6 MG/DL (8.5-10.1); Osmolality,Calculated 286.1 MOS/KG (273-304)
[2018-07-30] MEDS ORDERED: METOPROLOL TARTRATE 5 MG/5 ML VIAL IV ONE ×3 (07:59→09:59)
[2018-07-30] MEDS: INSULIN REGULAR 100 UNIT/ML SUBCUT SCH ×4 (09:55→21:25)
[2018-07-30] MEDS: ASPIRIN 325 MG TABLET PO SCH (10:09)
[2018-07-30] MEDS: AMIODARONE 200 MG TABLET PO SCH (10:09)
[2018-07-30] MEDS: CHLORHEXIDINE 0.12% ORAL RINSE 60 ML BOTTLE SWISH/SPIT SCH ×2 (10:10→21:26)
[2018-07-30] MEDS: FUROSEMIDE 40 MG TABLET PO SCH (10:10)
[2018-07-30] MEDS: NICOTINE 21 MG/24 HR PATCH TRANSDERM SCH (10:10)
[2018-07-30] MEDS: CARVEDILOL 12.5 MG TABLET PO SCH ×2 (10:11→21:26)
[2018-07-30] MEDS: MORPHINE 4 MG/1 ML VIAL IV PRN ×3 (10:15→19:50)
[2018-07-30] MEDS: LEVALBUTEROL 1.25 MG/3 ML NEB RESP TX SCH ×2 (12:00→19:31)
[2018-07-30] MEDS ORDERED: AMIODARONE INJ 150 MG in DEXTROSE 5% 100 ML IV ONE (12:00)
[2018-07-30] MEDS ORDERED: dilTIAZem Drip 125 MG/125 ML PREMIX IV SCH (12:00)
[2018-07-30] MEDS ORDERED: AMIODARONE INJ 450 MG in DEXTROSE 5% 241 ML IV SCH ×2 (12:00→18:00)
[2018-07-30] MEDS: ASCORBIC ACID 500 MG TABLET PO SCH ×2 (12:31→21:26)
[2018-07-30] MEDS: dilTIAZem Drip 125 MG/125 ML PREMIX IV SCH (12:32)
[2018-07-30] MEDS ORDERED: ALBUTEROL 2.5 MG/3 ML NEB RESP TX SCH (13:00)
[2018-07-30] MEDS ORDERED: GLUCAGON 1 MG VIAL IM PRN (13:42)
[2018-07-30] MEDS ORDERED: DEXTROSE 50% 25 GM/50 ML VIAL IV PRN (13:42)
[2018-07-30] MEDS: CARVEDILOL 6.25 MG TABLET PO SCH (13:50)
[2018-07-30] MEDS: metFORMIN 500 MG TABLET PO SCH (16:48)
[2018-07-30] MEDS: INSULIN NPH 100 UNIT/ML SUBCUT SCH (16:48)
[2018-07-30] MEDS: ROSUVASTATIN 20 MG TABLET PO SCH (21:26)
[2018-07-31] MEDS: LEVALBUTEROL 1.25 MG/3 ML NEB RESP TX SCH ×4 (00:30→19:40)
[2018-07-31] MEDS: chlordiazePOXIDE 10 MG CAPSULE PO SCH ×3 (02:25→17:15)
[2018-07-31 05:15] LABS: Basophils % 0.2 % (0.0-0.8); Hematocrit 34.8 VOL% (42.0-52.0); Hemoglobin 11.8 GM/DL (14.0-18.0); Immature Granulocytes % 1.7 %; Immature Granulocytes Absolute 0.32 #; Lymphocytes # 1.4 10*3/uL (1.4-4.0); Lymphocytes % 7.3 % (21.2-54.2); Mean Corpuscular HGB Conc 33.9 GM/DL (32-36); Mean Corpuscular Volume 94.3 FL (87-102); Monocytes % 5.8 % (1.7-12.7); Platelet Count 309 T/CUMM (130-400); Red Blood Count 3.69 MC/CUMM (3.8-5.5); Red Cell Distribution Width 14.6 % (9.3-17.3); White Blood Count 19.4 T/CUMM (4-12)
[2018-07-31 05:47] LABS: Calcium 8.6 MG/DL (8.5-10.1); Osmolality,Calculated 283.4 MOS/KG (273-304)
[2018-07-31] MEDS: MORPHINE 4 MG/1 ML VIAL IV PRN ×2 (06:53→12:08)
[2018-07-31] MEDS: NICOTINE 21 MG/24 HR PATCH TRANSDERM SCH (09:13)
[2018-07-31] MEDS: INSULIN NPH 100 UNIT/ML SUBCUT SCH ×2 (09:13→16:46)
[2018-07-31] MEDS: INSULIN REGULAR 100 UNIT/ML SUBCUT SCH ×4 (09:13→20:37)
[2018-07-31] MEDS: ASPIRIN 325 MG TABLET PO SCH (09:14)
[2018-07-31] MEDS: CHLORHEXIDINE 0.12% ORAL RINSE 60 ML BOTTLE SWISH/SPIT SCH ×2 (09:14→20:45)
[2018-07-31] MEDS: CARVEDILOL 12.5 MG TABLET PO SCH ×2 (09:15→20:37)
[2018-07-31] MEDS: metFORMIN 500 MG TABLET PO SCH ×2 (09:15→16:47)
[2018-07-31] MEDS: ASCORBIC ACID 500 MG TABLET PO SCH ×2 (09:15→20:36)
[2018-07-31] MEDS: FUROSEMIDE 40 MG TABLET PO SCH (09:15)
[2018-07-31] MEDS: methylPREDNISolone SOD SUC 40 MG/1 ML VIAL IV SCH ×2 (10:12→22:50)
[2018-07-31] MEDS: dilTIAZem Drip 125 MG/125 ML PREMIX IV SCH (13:51)
[2018-07-31] MEDS ORDERED: FUROSEMIDE 40 MG/4 ML VIAL IV ONE (14:16)
[2018-07-31] MEDS: ROSUVASTATIN 20 MG TABLET PO SCH (20:36)
[2018-08-01] MEDS: LEVALBUTEROL 1.25 MG/3 ML NEB RESP TX SCH ×4 (00:22→19:23)
[2018-08-01] MEDS: chlordiazePOXIDE 10 MG CAPSULE PO SCH ×3 (01:52→17:09)
[2018-08-01 05:07] LABS: Basophils # 0.1 10*3/uL (0.0-0.2); Basophils % 0.2 % (0.0-0.8); Hematocrit 36.1 VOL% (42.0-52.0); Hemoglobin 11.9 GM/DL (14.0-18.0); Immature Granulocytes % 2.5 %; Immature Granulocytes Absolute 0.53 #; Lymphocytes # 1.5 10*3/uL (1.4-4.0); Lymphocytes % 7.3 % (21.2-54.2); Mean Corpuscular Volume 95.8 FL (87-102); Mean Platelet Volume 10.3 FL (9.6-12.0); Monocytes % 6.5 % (1.7-12.7); Neutrophils % 83.5 % (38.7-73.9); Platelet Count 267 T/CUMM (130-400); Red Blood Count 3.77 MC/CUMM (3.8-5.5); Red Cell Distribution Width 14.5 % (9.3-17.3); White Blood Count 20.9 T/CUMM (4-12)
[2018-08-01 05:15] LABS: Calcium 8.7 MG/DL (8.5-10.1); Osmolality,Calculated 278.1 MOS/KG (273-304)
[2018-08-01 05:48] LABS: Band Neutrophils 10 % (0-10); Eosinophils 2 % (0-10); Lymphocytes 10 % (20-55); Platelet Estimate Normal; Segmented Neutrophils 72 % (50-85); Total Cells Counted 100
[2018-08-01] MEDS: NICOTINE 21 MG/24 HR PATCH TRANSDERM SCH (09:23)
[2018-08-01] MEDS: ASPIRIN 325 MG TABLET PO SCH (09:24)
[2018-08-01] MEDS: metFORMIN 500 MG TABLET PO SCH ×2 (09:24→17:09)
[2018-08-01] MEDS: FUROSEMIDE 40 MG TABLET PO SCH (09:24)
[2018-08-01] MEDS: CARVEDILOL 12.5 MG TABLET PO SCH ×2 (09:24→20:51)
[2018-08-01] MEDS: ASCORBIC ACID 500 MG TABLET PO SCH ×2 (09:24→20:50)
[2018-08-01] MEDS: CHLORHEXIDINE 0.12% ORAL RINSE 60 ML BOTTLE SWISH/SPIT SCH ×2 (09:25→20:55)
[2018-08-01] MEDS: INSULIN REGULAR 100 UNIT/ML SUBCUT SCH ×4 (09:25→20:49)
[2018-08-01] MEDS: INSULIN NPH 100 UNIT/ML SUBCUT SCH ×2 (09:25→17:09)
[2018-08-01] MEDS: methylPREDNISolone SOD SUC 40 MG/1 ML VIAL IV SCH ×2 (09:30→23:00)
[2018-08-01] MEDS: dilTIAZem Drip 125 MG/125 ML PREMIX IV SCH (12:32)
[2018-08-01] MEDS: LEVOFLOXACIN 750 MG TABLET PO SCH (13:41)
[2018-08-01] MEDS: ROSUVASTATIN 20 MG TABLET PO SCH (20:49)
[2018-08-01] MEDS ORDERED: ALUMINUM/MAGNES/SIMETH MAX STR 30 ML UDCUP PO PRN (23:02)
[2018-08-02] MEDS: LEVALBUTEROL 1.25 MG/3 ML NEB RESP TX SCH ×3 (01:00→14:00)
[2018-08-02] MEDS: chlordiazePOXIDE 10 MG CAPSULE PO SCH ×2 (03:40→09:00)
[2018-08-02 05:02] LABS: Basophils # 0.1 10*3/uL (0.0-0.2); Basophils % 0.2 % (0.0-0.8); Hematocrit 37.5 VOL% (42.0-52.0); Hemoglobin 12.5 GM/DL (14.0-18.0); Immature Granulocytes % 2.6 %; Immature Granulocytes Absolute 0.63 #; Lymphocytes # 1.3 10*3/uL (1.4-4.0); Lymphocytes % 5.4 % (21.2-54.2); Mean Corpuscular HGB Conc 33.3 GM/DL (32-36); Mean Corpuscular Volume 96.6 FL (87-102); Mean Platelet Volume 10.5 FL (9.6-12.0); Monocytes % 5.5 % (1.7-12.7); Neutrophils % 86.3 % (38.7-73.9); Platelet Count 291 T/CUMM (130-400); Red Blood Count 3.88 MC/CUMM (3.8-5.5); Red Cell Distribution Width 14.8 % (9.3-17.3); White Blood Count 24.4 T/CUMM (4-12)
[2018-08-02 05:22] LABS: Lymphocytes 5 % (20-55); Platelet Estimate Normal; Polychromasia Few; Segmented Neutrophils 91 % (50-85); Total Cells Counted 100
[2018-08-02 05:24] LABS: Calcium 8.8 MG/DL (8.5-10.1); Osmolality,Calculated 277.1 MOS/KG (273-304)
[2018-08-02] MEDS: metFORMIN 500 MG TABLET PO SCH (08:54)
[2018-08-02] MEDS: ASPIRIN 325 MG TABLET PO SCH (08:54)
[2018-08-02] MEDS: LEVOFLOXACIN 750 MG TABLET PO SCH (08:54)
[2018-08-02] MEDS: ASCORBIC ACID 500 MG TABLET PO SCH (08:54)
[2018-08-02] MEDS: INSULIN NPH 100 UNIT/ML SUBCUT SCH (08:55)
[2018-08-02] MEDS: CARVEDILOL 12.5 MG TABLET PO SCH (08:55)
[2018-08-02] MEDS: FUROSEMIDE 40 MG TABLET PO SCH (08:55)
[2018-08-02] MEDS: NICOTINE 21 MG/24 HR PATCH TRANSDERM SCH (08:55)
[2018-08-02] MEDS: CHLORHEXIDINE 0.12% ORAL RINSE 60 ML BOTTLE SWISH/SPIT SCH (08:56)
[2018-08-02] MEDS: INSULIN REGULAR 100 UNIT/ML SUBCUT SCH ×2 (08:56→12:00)
[2018-08-02] MEDS: methylPREDNISolone SOD SUC 40 MG/1 ML VIAL IV SCH (09:31)
[2018-08-02] MEDS ORDERED: DILTIAZEM CD 120 MG CAPSULE PO SCH (10:00)
[2018-08-02] MEDS: dilTIAZem Drip 125 MG/125 ML PREMIX IV SCH (11:59)
[2018-08-02 12:18] VITALS: BP 115/56
[2018-08-03] MEDS ORDERED: predniSONE 20 MG TABLET PO SCH (09:00)
== END 2018-08-02 15:33 | disposition home health service (06) | DRG 235 ==
LOC: N.ICU 14:34 → N.CVR 07-25 08:12 → N.ICU 07-27 07:06 → N.TELES 07-28 11:40
PROVIDERS: ADMIT Thoracic Surgery (Cardiothoracic Vascular Surgery); ATTEND Thoracic Surgery (Cardiothoracic Vascular Surgery)

== ENCOUNTER 2018-10-01 00:10 | Inpatient (IN) ==
[2018-10-01] MEDS ORDERED: cefTRIAXone 1,000 MG in SODIUM CHLORIDE 0.9% 100 ML IV STA (01:41)
[2018-10-01] MEDS ORDERED: CEFEPIME 2,000 MG in SODIUM CHLORIDE 0.9% 100 ML IV STA (02:22)
[2018-10-01] MEDS ORDERED: metroNIDAZOLE INJ 500 MG in PREMIX 1 EACH IV STA (02:22)
[2018-10-01] MEDS ORDERED: CEFEPIME 2,000 MG VIAL ONE (02:32)
[2018-10-01 02:34] LABS: Basophils # 0.1 10*3/uL (0.0-0.2); Basophils % 0.8 % (0.0-0.8); Eosinophils # 0.2 10*3/uL (0.0-0.87); Hematocrit 31.5 VOL% (42.0-52.0); Hemoglobin 9.8 GM/DL (14.0-18.0); Immature Granulocytes % 0.5 %; Immature Granulocytes Absolute 0.04 #; Lymphocytes # 2.6 10*3/uL (1.4-4.0); Lymphocytes % 33.3 % (21.2-54.2); Mean Corpuscular HGB Conc 31.1 GM/DL (32-36); Mean Corpuscular Volume 96.9 FL (87-102); Mean Platelet Volume 9.4 FL (9.6-12.0); Monocytes % 14.4 % (1.7-12.7); Platelet Count 268 T/CUMM (130-400); Red Blood Count 3.25 MC/CUMM (3.8-5.5); Red Cell Distribution Width 13.5 % (9.3-17.3); White Blood Count 7.9 T/CUMM (4-12)
[2018-10-01 03:03] LABS: Apearance,Urine CLOUDY (Clear); Bilirubin,Urine Negative (Negative); Blood, Urine Large mg/dL (Negative); Glucose,Urine (UA) >=500 mg/dL (Negative); Ketones,Urine Negative (Negative); Nitrite,Urine Negative (Negative); Protein,Urine 30 MG/DL; RBC,Urine 171 /HPF (0-4); Squamous Epithelial Cell,Urine Occasional /HPF (0-10); Urine Color Yellow (Yellow); Urine Urobilinogen < 2.0 EU/DL (0.2-1.0); WBC,Urine 690 /HPF (0-6)
[2018-10-01 03:08] LABS: Albumin 3.6 G/DL (3.4-5.0); Bilirubin,Total 0.4 MG/DL (0.2-1.0); Calcium 8.9 MG/DL (8.5-10.1); Osmolality,Calculated 282.4 MOS/KG (273-304); Total Protein 7.5 G/DL (6.4-8.3)
[2018-10-01] MEDS: FAMOTIDINE 20 MG/2 ML VIAL IV SCH ×2 (09:06→21:38)
[2018-10-01] MEDS: DEXTROSE 5% NACL 0.9% 1,000 ML IV SCH ×2 (09:11→19:28)
[2018-10-01] MEDS ORDERED: CEFEPIME 2,000 MG in SODIUM CHLORIDE 0.9% 100 ML IV SCH (10:30)
[2018-10-01] MEDS: CIPROFLOXACIN INJ 400 MG in PREMIX 1 EACH IV SCH ×2 (10:51→21:39)
[2018-10-01] MEDS: metroNIDAZOLE INJ 500 MG in PREMIX 1 EACH IV SCH ×2 (12:56→19:31)
[2018-10-01] MEDS: LEVALBUTEROL 1.25 MG/3 ML NEB RESP TX SCH ×2 (15:22→20:00)
[2018-10-01] MEDS: CARVEDILOL 6.25 MG TABLET PO SCH (16:37)
[2018-10-01] MEDS: ACETAMINOPHEN 325 MG TABLET PO PRN (17:31)
[2018-10-01] MEDS: ASCORBIC ACID 500 MG TABLET PO SCH (21:38)
[2018-10-01] MEDS: ROSUVASTATIN 20 MG TABLET PO SCH (21:38)
[2018-10-01] MEDS: BUDESONIDE/FORMOTEROL 160-4.5 INHALER 6 GM INH SCH (21:45)
[2018-10-01] MEDS: ONDANSETRON 4 MG/2 ML VIAL IV PRN (22:36)
[2018-10-02] MEDS: LEVALBUTEROL 1.25 MG/3 ML NEB RESP TX SCH ×4 (00:19→20:30)
[2018-10-02] MEDS: metroNIDAZOLE INJ 500 MG in PREMIX 1 EACH IV SCH ×3 (04:27→20:19)
[2018-10-02] MEDS: DEXTROSE 5% NACL 0.9% 1,000 ML IV SCH ×3 (04:27→20:18)
[2018-10-02 05:11] LABS: Basophils % 0.6 % (0.0-0.8); Eosinophils # 0.2 10*3/uL (0.0-0.87); Eosinophils % 2.4 % (0.00-10.9); Hemoglobin 9.6 GM/DL (14.0-18.0); Immature Granulocytes % 0.3 %; Immature Granulocytes Absolute 0.02 #; Lymphocytes # 2.2 10*3/uL (1.4-4.0); Lymphocytes % 32.4 % (21.2-54.2); Mean Corpuscular Volume 97.4 FL (87-102); Mean Platelet Volume 9.3 FL (9.6-12.0); Monocytes % 13.5 % (1.7-12.7); Neutrophils % 50.8 % (38.7-73.9); Platelet Count 254 T/CUMM (130-400); Red Blood Count 3.08 MC/CUMM (3.8-5.5); Red Cell Distribution Width 13.6 % (9.3-17.3); White Blood Count 6.8 T/CUMM (4-12)
[2018-10-02 05:46] LABS: Calcium 8.7 MG/DL (8.5-10.1); Osmolality,Calculated 283.1 MOS/KG (273-304)
[2018-10-02] MEDS: ONDANSETRON 4 MG/2 ML VIAL IV PRN (08:56)
[2018-10-02] MEDS: ASPIRIN 325 MG TABLET PO SCH (08:58)
[2018-10-02] MEDS: ASCORBIC ACID 500 MG TABLET PO SCH ×2 (08:58→20:23)
[2018-10-02] MEDS: CARVEDILOL 6.25 MG TABLET PO SCH ×2 (08:58→17:03)
[2018-10-02] MEDS: BUDESONIDE/FORMOTEROL 160-4.5 INHALER 6 GM INH SCH ×2 (08:58→20:23)
[2018-10-02] MEDS: CIPROFLOXACIN INJ 400 MG in PREMIX 1 EACH IV SCH ×2 (08:59→22:06)
[2018-10-02] MEDS ORDERED: VALSARTAN 20 MG PO SCH (09:00)
[2018-10-02] MEDS: FAMOTIDINE 20 MG/2 ML VIAL IV SCH ×2 (09:03→20:22)
[2018-10-02] MEDS: ENOXAPARIN 120 MG/0.8 ML SYRINGE SUBCUT SCH (20:22)
[2018-10-02] MEDS: ROSUVASTATIN 20 MG TABLET PO SCH (20:34)
[2018-10-03] MEDS: LEVALBUTEROL 1.25 MG/3 ML NEB RESP TX SCH ×4 (02:02→19:50)
[2018-10-03] MEDS: metroNIDAZOLE INJ 500 MG in PREMIX 1 EACH IV SCH ×3 (02:30→21:02)
[2018-10-03 05:39] LABS: Basophils % 0.6 % (0.0-0.8); Eosinophils # 0.3 10*3/uL (0.0-0.87); Eosinophils % 3.7 % (0.00-10.9); Hematocrit 30.2 VOL% (42.0-52.0); Hemoglobin 9.5 GM/DL (14.0-18.0); Immature Granulocytes % 0.4 %; Immature Granulocytes Absolute 0.03 #; Lymphocytes # 2.2 10*3/uL (1.4-4.0); Lymphocytes % 32.4 % (21.2-54.2); Mean Corpuscular HGB Conc 31.5 GM/DL (32-36); Mean Corpuscular Volume 97.7 FL (87-102); Mean Platelet Volume 9.6 FL (9.6-12.0); Monocytes % 13.6 % (1.7-12.7); Neutrophils % 49.3 % (38.7-73.9); Platelet Count 238 T/CUMM (130-400); Red Blood Count 3.09 MC/CUMM (3.8-5.5); Red Cell Distribution Width 13.5 % (9.3-17.3); White Blood Count 6.8 T/CUMM (4-12)
[2018-10-03 06:03] LABS: Osmolality,Calculated 290.8 MOS/KG (273-304)
[2018-10-03] MEDS: ASPIRIN 325 MG TABLET PO SCH (08:57)
[2018-10-03] MEDS: DEXTROSE 5% NACL 0.9% 1,000 ML IV SCH (08:57)
[2018-10-03] MEDS: CARVEDILOL 6.25 MG TABLET PO SCH ×2 (08:57→16:13)
[2018-10-03] MEDS: CIPROFLOXACIN INJ 400 MG in PREMIX 1 EACH IV SCH ×2 (08:58→22:26)
[2018-10-03] MEDS: BUDESONIDE/FORMOTEROL 160-4.5 INHALER 6 GM INH SCH ×2 (08:59→21:03)
[2018-10-03] MEDS: ENOXAPARIN 120 MG/0.8 ML SYRINGE SUBCUT SCH (10:18)
[2018-10-03] MEDS: FAMOTIDINE 20 MG/2 ML VIAL IV SCH ×2 (10:20→20:56)
[2018-10-03] MEDS: ASCORBIC ACID 500 MG TABLET PO SCH ×2 (10:21→20:56)
[2018-10-03] MEDS: ACETAMINOPHEN 325 MG TABLET PO PRN (10:36)
[2018-10-03] MEDS: ROSUVASTATIN 20 MG TABLET PO SCH (20:56)
[2018-10-04] MEDS: metroNIDAZOLE INJ 500 MG in PREMIX 1 EACH IV SCH ×2 (03:38→13:19)
[2018-10-04 06:08] LABS: Basophils # 0.1 10*3/uL (0.0-0.2); Basophils % 0.7 % (0.0-0.8); Eosinophils # 0.3 10*3/uL (0.0-0.87); Eosinophils % 3.7 % (0.00-10.9); Hematocrit 33.3 VOL% (42.0-52.0); Hemoglobin 10.5 GM/DL (14.0-18.0); Immature Granulocytes % 0.5 %; Immature Granulocytes Absolute 0.04 #; Lymphocytes # 2.4 10*3/uL (1.4-4.0); Lymphocytes % 29.1 % (21.2-54.2); Mean Corpuscular HGB Conc 31.5 GM/DL (32-36); Mean Corpuscular Volume 96.2 FL (87-102); Mean Platelet Volume 9.2 FL (9.6-12.0); Monocytes % 11.2 % (1.7-12.7); Neutrophils % 54.8 % (38.7-73.9); Platelet Count 301 T/CUMM (130-400); Red Blood Count 3.46 MC/CUMM (3.8-5.5); Red Cell Distribution Width 13.4 % (9.3-17.3); White Blood Count 8.3 T/CUMM (4-12)
[2018-10-04 06:33] LABS: Osmolality,Calculated 283.3 MOS/KG (273-304)
[2018-10-04] MEDS: LEVALBUTEROL 1.25 MG/3 ML NEB RESP TX SCH ×3 (07:54→13:42)
[2018-10-04] MEDS ORDERED: LIDOCAINE 2% TOP JELLY 20 ML VIAL INTRAURETH ONE (08:19)
[2018-10-04] MEDS: CARVEDILOL 6.25 MG TABLET PO SCH (08:27)
[2018-10-04] MEDS: FAMOTIDINE 20 MG/2 ML VIAL IV SCH (08:27)
[2018-10-04] MEDS: ASPIRIN 325 MG TABLET PO SCH (11:07)
[2018-10-04] MEDS: ASCORBIC ACID 500 MG TABLET PO SCH (11:07)
[2018-10-04] MEDS: BUDESONIDE/FORMOTEROL 160-4.5 INHALER 6 GM INH SCH (11:13)
[2018-10-04] MEDS: CIPROFLOXACIN INJ 400 MG in PREMIX 1 EACH IV SCH (11:21)
[2018-10-04 16:16] VITALS: BP 136/81
[2018-10-04] MEDS ORDERED: CARVEDILOL 12.5 MG TABLET PO SCH (17:00)
== END 2018-10-04 16:48 | disposition home or self-care (01) | DRG 394 ==
LOC: N.ED 00:10 → N.EDINP 05:50 → N.3E 06:04
PROVIDERS: ADMIT Family Medicine; ATTEND Family Medicine

== ENCOUNTER 2018-10-29 05:33 | Inpatient (IN) ==
[~2018-10-29 05:33] MED LIST: ALVIMOPAN 12 MG CAPSULE PO ONE; ERTAPENEM 1,000 MG in SODIUM CHLORIDE 0.9% 100 ML IV ONE
[2018-10-29] MEDS ORDERED: ALVIMOPAN 12 MG CAPSULE ONE (05:43)
[2018-10-29] MEDS ORDERED: ERTAPENEM 1,000 MG VIAL ONE (05:43)
[2018-10-29] MEDS ORDERED: LACTATED RINGERS 1,000 ML IV SCH (06:00)
[2018-10-29] MEDS ORDERED: BUPIVACAINE 0.25% /EPI 10 ML VIAL ONE (06:31)
[2018-10-29] MEDS ORDERED: INDOCYANINE GREEN 25 MG VIAL IV ONE (06:32)
[2018-10-29] MEDS ORDERED: LIDOCAINE 1% 20 ML VIAL ONE (06:32)
[2018-10-29] MEDS ORDERED: TISSUE ADHESIVE 1 EACH APPLICATOR TOP ONE (06:32)
[2018-10-29] MEDS ORDERED: ALBUTEROL/IPRATROPIUM 3 ML NEB RESP TX ONE (06:35)
[2018-10-29] MEDS ORDERED: BUPIVACAINE 0.5% 50 ML VIAL ONE (06:39)
[2018-10-29] MEDS ORDERED: DEXAMETHASONE 4 MG/1 ML VIAL ONE (06:39)
[2018-10-29] MEDS ORDERED: ALVIMOPAN 12 MG CAPSULE PO ONE (07:00)
[2018-10-29 09:55] LABS: Apearance,Urine CLEAR (Clear); Bilirubin,Urine Negative (Negative); Blood, Urine Moderate mg/dL (Negative); Glucose,Urine (UA) 50 mg/dL (Negative); Hyaline Casts,Urine 1 /LPF (0-3); Ketones,Urine Negative (Negative); Mucus,Urine Occasional /LPF (Occasional); Nitrite,Urine Negative (Negative); Protein,Urine Negative; RBC,Urine 15 /HPF (0-4); Squamous Epithelial Cell,Urine Occasional /HPF (0-10); Urine Color Yellow (Yellow); Urine Specific Gravity 1.009 (1.001-1.035); Urine Urobilinogen < 2.0 EU/DL (0.2-1.0); WBC,Urine 63 /HPF (0-6)
[2018-10-29] MEDS ORDERED: EPINEPHrine 1 MG/ML VIAL ONE (10:06)
[2018-10-29] MEDS: HYDROmorphone 2 MG/1 ML VIAL IV PRN ×4 (13:40→14:00)
[2018-10-29] MEDS ORDERED: LIDOCAINE 2% 5 ML VIAL ONE (13:46)
[2018-10-29] MEDS ORDERED: SEVOFLURANE 1 UNIT/15 MINUTE INH ONE (13:47)
[2018-10-29] MEDS ORDERED: fentaNYL 100 MCG/2 ML VIAL ONE (13:47)
[2018-10-29] MEDS ORDERED: PROPOFOL 200 MG/20 ML VIAL IV ONE (13:47)
[2018-10-29] MEDS ORDERED: ROCURONIUM 100 MG/10 ML VIAL IV ONE (13:47)
[2018-10-29] MEDS ORDERED: LACTATED RINGERS 2,000 ML IV ONE (13:47)
[2018-10-29] MEDS ORDERED: MIDAZOLAM 2 MG/2 ML VIAL ONE (13:47)
[2018-10-29] MEDS ORDERED: SUCCINYLCHOLINE 200 MG/10 ML VIAL ONE (13:48)
[2018-10-29] MEDS ORDERED: hydrALAZINE 20 MG/1 ML VIAL ONE (13:49)
[2018-10-29] MEDS ORDERED: ONDANSETRON 4 MG/2 ML VIAL ONE ×2 (13:49→13:55)
[2018-10-29] MEDS ORDERED: GLYCOPYRROLATE 0.4 MG/2 ML VIAL ONE (13:49)
[2018-10-29] MEDS ORDERED: LABETALOL 100 MG/20 ML VIAL IV ONE (13:49)
[2018-10-29] MEDS ORDERED: ETOMIDATE 40 MG/20 ML VIAL IV ONE (13:49)
[2018-10-29] MEDS ORDERED: PHENYLEPHRINE 1 MG/10 ML SYRINGE IV ONE (13:50)
[2018-10-29] MEDS ORDERED: ACETAMINOPHEN 1,000 MG/100 ML VIAL IV ONE (13:50)
[2018-10-29] MEDS ORDERED: NEOSTIGMINE 10 MG/10 ML VIAL ONE (13:50)
[2018-10-29] MEDS ORDERED: HYDROmorphone 2 MG/1 ML VIAL ONE (13:55)
[2018-10-29] MEDS ORDERED: MORPHINE 10 MG/1 ML VIAL IV PRN (14:06)
[2018-10-29] MEDS ORDERED: MEPERIDINE 25 MG/1 ML VIAL IV PRN (14:06)
[2018-10-29] MEDS ORDERED: ONDANSETRON 4 MG/2 ML VIAL IV PRN (14:06)
[2018-10-29] MEDS ORDERED: hydrALAZINE 20 MG/1 ML VIAL IV ONE (14:07)
[2018-10-29] MEDS ORDERED: LABETALOL 20 MG/4 ML SYRINGE IV ONE (14:08)
[2018-10-29] MEDS ORDERED: HYDROmorphone 2 MG/1 ML VIAL IV PRN (14:19)
[2018-10-29] MEDS ORDERED: PROMETHAZINE 25 MG/1 ML VIAL IM PRN (14:19)
[2018-10-29] MEDS ORDERED: MORPHINE 10 MG/1 ML VIAL ONE (14:32)
[2018-10-29] MEDS: LACTATED RINGERS 1,000 ML IV SCH ×2 (14:55→22:03)
[2018-10-29 15:02] LABS: Calcium 8.7 MG/DL (8.5-10.1)
[2018-10-29 15:40] LABS: Basophils % 0.1 % (0.0-0.8); Hematocrit 35.6 VOL% (42.0-52.0); Hemoglobin 11.5 GM/DL (14.0-18.0); Immature Granulocytes % 0.3 %; Immature Granulocytes Absolute 0.06 #; Lymphocytes # 0.8 10*3/uL (1.4-4.0); Lymphocytes % 4.4 % (21.2-54.2); Mean Corpuscular HGB Conc 32.3 GM/DL (32-36); Mean Corpuscular Volume 95.2 FL (87-102); Mean Platelet Volume 9.3 FL (9.6-12.0); Monocytes % 4.9 % (1.7-12.7); Neutrophils % 90.3 % (38.7-73.9); Platelet Count 318 T/CUMM (130-400); Red Blood Count 3.74 MC/CUMM (3.8-5.5); Red Cell Distribution Width 13.1 % (9.3-17.3); White Blood Count 17.7 T/CUMM (4-12)
[2018-10-29] MEDS: OXYBUTYNIN XL 10 MG TABLET PO SCH (16:29)
[2018-10-29] MEDS: KETOROLAC 15 MG/1 ML VIAL IV SCH ×2 (16:29→21:22)
[2018-10-29] MEDS: ERTAPENEM 1,000 MG in SODIUM CHLORIDE 0.9% 100 ML IV SCH (16:29)
[2018-10-29 16:45] LABS: Band Neutrophils 1 % (0-10); Lymphocytes 4 % (20-55); Myelocytes 1 %; Segmented Neutrophils 91 % (50-85); Total Cells Counted 100
[2018-10-29 16:46] LABS: Macrocytosis 2+
[2018-10-29 16:50] LABS: Hypochromasia Slight; Polychromasia Few
[2018-10-29 16:51] LABS: Platelet Estimate Normal
[2018-10-29] MEDS: CARVEDILOL 12.5 MG TABLET PO SCH (17:11)
[2018-10-29] MEDS: ROSUVASTATIN 20 MG TABLET PO SCH (21:22)
[2018-10-30] MEDS: ONDANSETRON 4 MG/2 ML VIAL IV PRN ×2 (01:03→17:46)
[2018-10-30] MEDS: KETOROLAC 15 MG/1 ML VIAL IV SCH ×4 (04:59→21:25)
[2018-10-30 06:04] LABS: Basophils % 0.1 % (0.0-0.8); Hematocrit 29.1 VOL% (42.0-52.0); Hemoglobin 9.3 GM/DL (14.0-18.0); Immature Granulocytes % 0.5 %; Immature Granulocytes Absolute 0.07 #; Lymphocytes # 1.5 10*3/uL (1.4-4.0); Lymphocytes % 10.7 % (21.2-54.2); Mean Corpuscular Volume 95.1 FL (87-102); Mean Platelet Volume 9.7 FL (9.6-12.0); Monocytes % 11.2 % (1.7-12.7); Neutrophils % 77.5 % (38.7-73.9); Platelet Count 270 T/CUMM (130-400); Red Blood Count 3.06 MC/CUMM (3.8-5.5); Red Cell Distribution Width 13.4 % (9.3-17.3); White Blood Count 14.1 T/CUMM (4-12)
[2018-10-30] MEDS: LACTATED RINGERS 1,000 ML IV SCH (06:11)
[2018-10-30 06:15] LABS: Calcium 8.4 MG/DL (8.5-10.1); Osmolality,Calculated 284.4 MOS/KG (273-304)
[2018-10-30] MEDS: ASCORBIC ACID 500 MG TABLET PO SCH (08:43)
[2018-10-30] MEDS: CARVEDILOL 12.5 MG TABLET PO SCH ×2 (08:43→17:18)
[2018-10-30] MEDS: OXYBUTYNIN XL 10 MG TABLET PO SCH (08:43)
[2018-10-30] MEDS: ASPIRIN CHEW 81 MG TABLET PO SCH (08:43)
[2018-10-30] MEDS: ENOXAPARIN 40 MG/0.4 ML SYRINGE SUBCUT SCH (08:43)
[2018-10-30] MEDS: ALVIMOPAN 12 MG CAPSULE PO SCH ×2 (08:43→20:47)
[2018-10-30] MEDS: ERTAPENEM 1,000 MG in SODIUM CHLORIDE 0.9% 100 ML IV SCH (15:36)
[2018-10-30] MEDS: ROSUVASTATIN 20 MG TABLET PO SCH (20:47)
[2018-10-31] MEDS: KETOROLAC 15 MG/1 ML VIAL IV SCH ×2 (03:28→10:04)
[2018-10-31 04:42] LABS: Basophils % 0.4 % (0.0-0.8); Eosinophils % 0.3 % (0.00-10.9); Hematocrit 26.1 VOL% (42.0-52.0); Hemoglobin 8.2 GM/DL (14.0-18.0); Immature Granulocytes % 0.5 %; Immature Granulocytes Absolute 0.05 #; Lymphocytes # 2.4 10*3/uL (1.4-4.0); Lymphocytes % 21.9 % (21.2-54.2); Mean Corpuscular HGB Conc 31.4 GM/DL (32-36); Mean Corpuscular Volume 96.3 FL (87-102); Mean Platelet Volume 9.8 FL (9.6-12.0); Monocytes % 14.5 % (1.7-12.7); Neutrophils % 62.4 % (38.7-73.9); Platelet Count 240 T/CUMM (130-400); Red Blood Count 2.71 MC/CUMM (3.8-5.5); Red Cell Distribution Width 13.7 % (9.3-17.3); White Blood Count 10.8 T/CUMM (4-12)
[2018-10-31 05:07] LABS: Calcium 8.5 MG/DL (8.5-10.1); Osmolality,Calculated 280.7 MOS/KG (273-304)
[2018-10-31 08:10] VITALS: BP 133/71
[2018-10-31] MEDS: CARVEDILOL 12.5 MG TABLET PO SCH (08:25)
[2018-10-31] MEDS: OXYBUTYNIN XL 10 MG TABLET PO SCH (08:26)
[2018-10-31] MEDS: ASPIRIN CHEW 81 MG TABLET PO SCH (08:26)
[2018-10-31] MEDS: ASCORBIC ACID 500 MG TABLET PO SCH (08:26)
[2018-10-31] MEDS: ALVIMOPAN 12 MG CAPSULE PO SCH (08:28)
[2018-10-31] MEDS: ENOXAPARIN 40 MG/0.4 ML SYRINGE SUBCUT SCH (08:29)
[2018-10-31] MEDS: ONDANSETRON 4 MG/2 ML VIAL IV PRN (08:33)
== END 2018-10-31 11:20 | disposition home or self-care (01) | DRG 330 ==
LOC: N.OR 05:33 → N.SDSINP 05:33 → N.3E 14:45
PROVIDERS: ADMIT Surgery; ATTEND Surgery